=== PATIENT | female | born 1990 | race African-American/Black ===

== ENCOUNTER 2019-05-20 19:26 | Emergency (ER) | payer OTHER ==
[~2019-05-20] VITALS: Ht 160 cm; Wt 111.1 kg
[2019-05-20] MEDS ORDERED: JUNEL FE PO (19:48)
[2019-05-20] MEDS ORDERED: MONTELUKAST SOD10 MG PO (19:49)
[2019-05-20] MEDS ORDERED: BUPROPION HYDR100 M1 PO (19:49)
[2019-05-20 21:51] VITALS: BP 140/81; TEMP 98.4
== END 2019-05-20 21:54 | disposition home or self-care (01) ==
LOC: ED 19:26
DX: M25.572 Pain in left ankle and joints of left foot (principal); M79.662 Pain in left lower leg
CPT/HCPCS: 99283